=== PATIENT | male | born 1965 | race Caucasian/White ===

== ENCOUNTER → 2022-11-06 01:37 | Outpatient (CLI) | payer BC, SELFPAY ==
--- NOTE | 2022-11-06 | DI.MRI_ITS ---
Exam(s) MR LUMBAR SPINE WO/W EXAM: MR LUMBAR SPINE WO/W CLINICAL HISTORY: LOW BACK PAIN, RADICULOPATHY, SPINAL STENOSIS. TECHNIQUE: Multiplanar multisequence MRI of the Lumbar Spine was performed. Additional pre and post gadolinium fat suppressed T1 sagittal and axial sequences were performed. CONTRAST MATERIAL: IV Contrast: 20 mL of Dotarem contrast administered. COMPARISON: CR from 07/23/2015 FINDINGS: Bones: The last intervertebral disc space is designated the L5/S1 level for the numbering purpose of this examination. The vertebral body heights are well maintained. Alignment is satisfactory. Laminectomy at L4. The signal characteristics are unremarkable. Cord: The conus tip ends at the T12 level. It is of normal size and signal intensity. T12-L1: No disc herniations or bulges are present. No central spinal canal or neural foraminal stenos is. L1-2: Moderate loss of disc height. Endplate osteophytes and mild concentric disc bulging. Mild gabby ateral neural foraminal narrowing. No central spinal canal stenosis. Findings have slightly progre ssed from prior. L2-3: No disc herniations or bulges are present. No central spinal canal or neural foraminal stenosis . L3-4: Mild disc bulging. Mild facet degenerative changes. Mild bilateral neural foraminal narrowing . L4-5: Laminectomy defect. Mild disc bulging. Facet degenerative changes cause bilateral moderate to severe neural foraminal encroachment. Findings are in stable from prior. No central canal stenosis . L5-S1: Prominent facet joint degenerative changes. Mild loss of disc height, small endplate osteophy pb and mild concentric disc bulging. Severe bilateral neural foraminal narrowing. Findings stable from prior. The visualized SI joints and sacrum are well maintained. Soft tissues: Postsurgical changes in the posterior soft tissues the lower lumbar region. No focal c ollection. There is no evidence of suspicious enhancement. IMPRESSION: Stable postsurgical and degenerative changes. Neural foraminal narrowing again demonstrated at L4-5 and L5-S1. DATA REPOSITORY:
[2022-11-06] MEDS: Gadoterate meglumine 20 ML SYRINGE IVP (09:15)
[2022-11-06] MEDS: Normal Saline Flush 10 ML SYR IVP (09:17)
== END ==
PROVIDERS: Visit Provider Registered Nurse
DX: Z98.890 Other specified postprocedural states (principal); M99.63 Osseous and subluxation stenosis of intervertebral foramina of lumbar region
CPT/HCPCS: 72158; 82565